=== PATIENT | female | born 1975 | race Caucasian/White ===

== ENCOUNTER 2025-03-23 08:38 | Outpatient (REF) | payer OTHER, SELFPAY ==
[2025-03-23 13:29] LABS: Appearance Urine Clear; Glucose Urine UA Negative (Negative); PH 6.0 (5.0-9.0); Specific Gravity - Urine 1.015 (1.005-1.025); UMIC TRIGGER UACC YES
[2025-03-23 13:36] LABS: UACC Culture Trigger YES
[2025-03-23 13:56] LABS: Hemoglobin A1C 123.7948 umol/L
[2025-03-23 14:13] LABS: Alanine Aminotransferase 24 U/L (0-31); Albumin Level 4.2 g/dL (3.5-5.0); Alkaline Phosphatase 73 U/L (39-117); Anion Gap 8 (12-20); Aspartate Amino Transferase 24 U/L (5-31); Blood Urea Nitrogen 14 mg/dL (9-16); Calcium 8.8 mg/dL (8.4-10.2); Carbon Dioxide 27 mmol/L (22-29); Chloride 106 mmol/L (96-108); Cholesterol 149 mg/dL (<200); Estimated Glomerular Filt Rate > 60; HDL Cholesterol 52 mg/dL (>40); Magnesium 2.0 mg/dL (1.6-2.6); Potassium 4.2 mmol/L (3.3-5.1); Sodium 137 mmol/L (135-145); Total Protein 7.4 g/dL (6.5-8.0); Triglycerides 65 mg/dL (<150)
[2025-03-23 14:16] LABS: HBS Num1 0.00 mIU/mL (0-7.99); HBsAGNum1 0.47 S/CO (0.00-0.99); HIV Num 1 0.05 S/CO (0.00-0.99); Hepatitis B Surface Antigen Negative (Negative); ~HepC Num1 0.15 S/CO (0.00-0.79); ~Hepatitis B Surface Antibody NONREACTIVE (Nonreactive); ~Hepatitis C Antibody Nonreactive (Nonreactive)
[2025-03-23 14:47] LABS: Folate 10.1 ng/mL (> or = 4.0); Vitamin B12 240 pg/mL (200-900)
[2025-03-29 19:28] LABS: VITAMIN D (1,25 OH) D3 27 pg/mL; Vit D (1,25-Dihydroxy) Total 27 pg/mL (18-72); Vitamin D (1,25 OH) D2 <8 pg/mL
== END 2025-03-23 08:39 | disposition home or self-care (01) ==
LOC: HO.HKASLDS 08:38
PROVIDERS: PCP Student in an Organized Health Care Education/Training Program; Visit Provider Student in an Organized Health Care Education/Training Program
DX: Z13.9 Encounter for screening, unspecified (principal); Z76.89 Persons encountering health services in other specified circumstances; Z13.31 Encounter for screening for depression; Z13.1 Encounter for screening for diabetes mellitus; Z13.220 Encounter for screening for lipoid disorders; J38.3 Other diseases of vocal cords; D17.9 Benign lipomatous neoplasm, unspecified; E66.01 Morbid (severe) obesity due to excess calories; R49.0 Dysphonia; R06.2 Wheezing; F41.9 Anxiety disorder, unspecified; F32.A Depression, unspecified; F43.10 Post-traumatic stress disorder, unspecified; F12.91 Cannabis use, unspecified, in remission; Z87.891 Personal history of nicotine dependence; Z68.43 Body mass index [BMI] 50.0-59.9, adult
CPT/HCPCS: 36415; 80053; 80061; 81001; 82607; 82652; 82746; 83036; 83735; 84443; 86706; 86803; 87086; 87340; 87389; 96127; 99202

== ENCOUNTER 2025-03-23 08:38 | Outpatient (AMB) | payer OTHER, SELFPAY ==
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
[2025-03-23 08:49] VITALS: BP 142/90; PULSE 76; O2SAT 97; BMI 57.2
== END 2025-03-23 09:40 | disposition home or self-care (01) ==
PROVIDERS: PCP Student in an Organized Health Care Education/Training Program; Visit Provider Student in an Organized Health Care Education/Training Program
DX: J38.3 Other diseases of vocal cords (principal); D17.9 Benign lipomatous neoplasm, unspecified; E66.01 Morbid (severe) obesity due to excess calories; R49.0 Dysphonia; R06.2 Wheezing; F41.9 Anxiety disorder, unspecified; F32.A Depression, unspecified; F43.10 Post-traumatic stress disorder, unspecified; Z13.31 Encounter for screening for depression; Z13.220 Encounter for screening for lipoid disorders; Z87.891 Personal history of nicotine dependence; F12.91 Cannabis use, unspecified, in remission

== ENCOUNTER 2025-04-06 14:09 | Outpatient (AMB) | payer OTHER, SELFPAY ==
--- OUTSIDE RECORDS SUMMARY | 2020-08-12 07:00 | XMS_ITS | Continuity of Care Document ---
Author Organization [facility] Address [address] [place] [id number] Phone Care Team Providers Care Insurance Coordinator Name Role Phone Elsi Sierra PA-C Unavailable Unavailable Procedures Procedure Date Left Without Being Seen Advance Directives Directive Yes / No Effective Date File Name No Information Encounters Encounter Description Practice Location Reason(s) For Visit Diagnoses Date Provider Providers Copied on Encounter [facility], [address] [place] [address], [id number], tel:[phone] [place] [address] No Information [facility] Calzada. [address] [place] [address], [id number], [place]. tel:[phone] Referring Provider: Elsi Sierra, [address] [place] [address], [facility]. tel:[phone] Family History Family Member Type Diagnosis Age At Onset No Information Payers Payer name Insurance type Covered constitution party ID Authoriza tion(s) No Information Social History Type Description Quantity Date Captured Comments Alcohol Use Details Unknown Caffeine Use Details Unknown Tobacco Use Status No Information Smoking Status No Information Sex Female Sexual Orientation Choose not to disclose Gender Identity Choose not to disclose Chief Complaint And Reason For Visit No Information Reason For Referral Reason For Referral No Information Plan Of Treatment Date Type Action Status Goal Pap/HPV testing. Due on due History Of Present Illness Encounter Date Complaint History Of Prese nt Illness No Information Functional Status Date Functional Assessmen t No Information Instructions Date Instruction Additional Infor mation No Information Assessments Type Assessment Date No Information Patient Care Teams Name Effective Dates (start - stop) Status Members No Information
--- NOTE | 2025-04-06 14:16 | A.OFFPC_ITS ---
Vital Signs 04/06/25 14:17 Height 5 ft 5.94 in Weight 346 lb 2 oz BMI 56.0 BMI Reason not done Patient refused/unable Respiration 16 Pulse 89 Pulse Source Pulse Oximeter Temp 99.2 F Temp Source Oral Pulse Oximetry (%) 97 Oxygen Delivery Method Room Air Intake Visit Reasons: pap smear Intake Note: Patient is a new patient here to establish care for Vocal cord disorder, GERD. Pt state she does not have asthma. Transferring care from [place]. Medical records have been requested today. Ultrasound Manager Required: No Accompanied by: Self / Same As Patient Allergies Penicillins Allergy (Verified 04/06/25 14:16) Unknown Tobacco use date assessed: 03/23/25 Dental Screening Dental Screen Date: 03/23/25 Did you have a dental visit in the last 12 months?: No Did you have a dental problem in the last 6 months where you did not have access to dental care?: No Was dental information given to patient?: Yes HPI HPI Comments History of Present Illness Details History of Present Illness The patient is a 49-year-old female presenting with mental health concerns including depression, anxiety, and sleep disturbances. Patient also came in to perform a Pap smear and for her results from initial encounter was not able to perform the Pap or provide results due to the EMR being down I could not access labs place orders etcetera she will return for lab results and Pap smear -vocal cord dysfunction Patient did not take the famotidine she stopped all medication and is just on allergy medication which she verbalizes has helped very much. Depression: - The patient reports experiencing depre ssion, which is part of a broader set of mental health issues. Panic attacks: - The patient experiences panic attacks as part of her anxiety disorder. Anxiety: - Anxiety is a significant concern for t davis patient, contributing to her overall mental health challenges. Obsessive-compulsive disorder (OCD): - The patient has a history of obsessive -compulsive disorder, which is part of her mental health profile. Post-traumatic stress disorder (PTSD): - The patient reports PTSD symptoms foll owing traumatic events in 1997 and 2001, including finding her baby and mother . Separation anxiety: - The patient experiences separation anx iety, contributing to her mental health issues. Agoraphobia: - The patient reports agoraphobia, which affects her daily functioning. Sleep disturbances: - The patient experiences sleep disturba nces, including waking up multiple times during the night, which she attributes to menopause. Review of Systems - Psychiatric: Reports depression, panic attacks, anxiety, OCD, PTSD, separation anxiety, agoraphobia. - Sleep: Reports frequent awakenings dur ing the night, attributed to menopause. 10-point ROS reviewed and negative excep t as noted in HPI Past Medical History - Depression - Panic attacks - Anxiety - Obsessive-compulsive disorder (OCD) - Post-traumatic stress disorder (PTSD) - Separation anxiety - Agoraphobia Health Maintenance - Discussed referral to therapy for ment al health support, including options for virtual sessions. - Planned Pap smear for cervical cancer screening. Physical Exam General: Well-appearing, in no acute distress. Vital signs: Within normal limits. HEENT: Normocephalic, atraumatic. PERRLA, EOMI. Conjunctiva clear, sclera anicteric. Oropharynx clear, mucous membranes moist. TMs intact bilaterally. Neck: Supple, no lymphadenopathy, no thyromegaly, no JVD or carotid bruits. Cardiovascular: RRR, normal S1/S2, no murmurs, rubs, or gallops. Peripheral pulses 2+ and symmetric. No edema. Respiratory: Lungs clear to auscultation bilaterally, no wheezes, rales, or rhonchi. Normal effort. Abdomen: Soft, non-tender, non-distended. Normoactive bowel sounds. No hepatosplenomegaly, no masses. MSK: Full range of motion, no joint swelling or deformity. Normal gait. Skin: Warm, dry, intact. No rashes, lesions, or pallor. Neuro: Alert and oriented x3. Cranial nerves II-XII intact. Strength 5/5 throughout. Sensation intact. Reflexes 2+ symmetric. Normal coordination and gait. Psych: Appropriate mood and affect. Normal judgment and insight. Patient reports depression, panic attacks, anxiety, OCD, posttraumatic stress syndrome, separation anxiety, and agoraphobia. Plan 1. Depression - Referral to therapy for mental health support was discussed. 2. Panic Attacks - Referral to therapy for mental health support was discussed. 3. Anxiety - Referral to therapy for mental health support was discussed. 4. Obsessive-Compulsive Disorder (Ocd) - Referral to therapy for mental health support was discussed. 5. Post-Traumatic Stress Disorder (Ptsd) - Referral to therapy for mental health support was discussed. 6. Separation Anxiety - Referral to therapy for mental health support was discussed. 7. Agoraphobia - Referral to therapy for mental health support was discussed. 8. Sleep Disturbances - Discussed the use of melatonin and oth er sleep aids to manage sleep disturbances. Discussion Notes During the visit, we discussed the patient's mental health concerns, including depression, anxiety, and sleep disturbances. I recommended a referral to therapy, which can be conducted virtually. We also discussed the use of melatonin for sleep issues. Patient was informed and verbally consented to the use of an ambient scribe for clinic note documentation during this visit. Patient Instructions - Follow up with the therapist as discus sed for mental health support. - Consider using melatonin or other fer mmended sleep aids to improve sleep quality. - Schedule a Pap smear for cervical can er screening as planned. Total time spent caring for the patient today was 30 minutes. This includes time spent before the visit reviewing the chart, time spent documenting, and time spent reviewing laboratory results, medications, performing a medically necessary evaluation, counseling on diagnoses, care coordination, ordering appropriate tests, ordering appropriate medications. [facility] [place] Medical History Lipoma Disorder of vocal cord Surgical History S/P tubal ligation Social History Housing: House Patient Tobacco Use Status: Never used Tobacco e-Cigarette/Vaping Use: Never Used Substance Use Type: Marijuana service: No Current occupational status: disabled Cognitive needs: No Hearing needs: No Vision needs: No Questionnaire PHQ-9 Over the last 2 weeks, how often have you been bothered by any of the following problems? 1. Little interest or pleasure in doing things: not at all 2. Feeling down, depressed, or hopeless: several days 3. Trouble falling or staying asleep, or sleeping too much: nearly every day 4. Feeling tired or having little energy: several days 5. Poor appetite or overeating: not at all 6. Feeling bad about yourself - or that you are a failure or have let yourself or your family down: several days 7. Trouble concentrating on things, such as reading the newspaper or watching television: several days 8. Moving or speaking so slowly that other people could have noticed. Or the opposite - being so fidgety or restless that you have been moving around a lot more than usual: nearly every day 9. Thoughts that you would be better off or of hurting yourself in some way: not at all Total score: 10 Depression Screening Interpretation: Positive Depression Screening Done: Yes 63090 - PHQ-9 Billing: Yes Source: Developed by Drs. Corey Oropeza, Karen Enriquez, Parth Fagan and colleagues, with an educational bruce from [employer]. Thrive Questionnaire Date Thrive assessed: 03/16/25 I am a: Patient What is your living situation today?: I have a steady place to live Within the past 12 months, did the food you bought not last and you didn't have the money to get more?: Sometimes True Within the past 12 months, did you worry whether your food would run out before you got money to buy more?: Sometimes True Do you have trouble paying for medicines?: Yes Do you have trouble getting transportation to medical appointments?: Yes Do you have trouble paying your heating and electricity bill?: Yes Do you have trouble taking care of your child, family member or friend?: I choose not to answer this question Do you have trouble with day-to-day activities such as bathing, preparing meals, shopping, managing finances, etc.?: Yes Are you currently unemployed and looking for a job?: I choose not to answer this question Are you interested in more education?: No THRIVE Score: 4 AUDIT C Alcohol Use Questionnaire (AUDIT-C) 1. How often do you have a drink containing alcohol?: Monthly or less 2. How many drinks containing alcohol do you have on a typical day when you are drinking?: 1 or 2 3. How often do you have six or more drinks on one occasion?: Never Total Score: 1 RENETTA-7 AMB Questionnaire RENETTA-7 Date RENETTA - 7 assessed: 03/23/25 Feeling nervous, anxious, or on edge: 3 = Nearly every day Not being able to stop or control worryin = Nearly every day Worrying too much about different things: 3 = Nearly every day Trouble relaxin = Nearly every day Being so restless that it is hard to sit still: 3 = Nearly every day Becoming easily annoyed or irritable: 0 = Not at all Feeling afraid as if something awful might happen: 3 = Nearly every day Total RENETTA-7 score (0-4 normal; 5-9 mild; 10-14 moderate; 15-21 severe): 18 Source: Developed by Drs. Corey Oropeza, Karen Enriquez, Parth Fagan and colleagues, with an educational bruce from [employer]. RENETTA-7 Assessment Billing RENETTA-7 Assessment Tool: RENETTA-7 Assessment 07180 Physical exam (Primary Care) Vital Signs: Last Vital Signs Temp 99.2 F 04/06/25 14:17 Pulse 89 04/06/25 14:17 Resp 16 04/06/25 14:17 Pulse Ox 97 04/06/25 14:17 Oxygen Delivery Method Room Air 04/06/25 14:17 BMI result Body Mass Index 56.0 Tobacco/Smoking Status: Tobacco use Status Tobacco use date assessed 03/23/25 04/06/25 14:17 Patient Tobacco Use Status Never used Tobacco 04/06/25 14:17 e-Cigarette/Vaping Use Never Used 04/06/25 14:17 PHQ-9: PHQ-9 Score PHQ-9: Total score 10 04/06/25 14:20 Depression Screening Interpretation: Positive Thrive Assessment: Date of Thrive Assessment Date Thrive assessed 03/16/25 04/06/25 14:17 Coding Level of Care Code Est Pt Level 4 (86707) Diagnoses Disorder of vocal cord J38.3 Anxiety and depression F41.9; F32.A Panic attacks F41.0 OCD (obsessive compulsive disorder) F42.9 Posttraumatic stress disorder F43.10 Separation anxiety F93.0 Agoraphobia F40.00 Sleep disturbances G47.9 Additional Codes RENETTA-7 Assessment Billing - RENETTA-7 Assessment Tool: RENETTA-7 Assessment 82539 ([id number]) PHQ-9 - 97748 - PHQ-9 Billing: Yes ([id number]) Assessment & Plan Assessment & Plan (1) Disorder of vocal cord: Code(s): J38.3 - Other diseases of vocal cords Category: Medical (2) Anxiety and depression: Code(s): F41.9 - Anxiety disorder, unspecified; F32.A - Depression, unspecified (3) Panic attacks: Code(s): F41.0 - Panic disorder [episodic paroxysmal anxiety] (4) OCD (obsessive compulsive disorder): Code(s): F42.9 - Obsessive-compulsive disorder, unspecified (5) Posttraumatic stress disorder: Code(s): F43.10 - Post-traumatic stress disorder, unspecified (6) Separation anxiety: Code(s): F93.0 - Separation anxiety disorder of childhood (7) Agoraphobia: Code(s): F40.00 - Agoraphobia, unspecified (8) Sleep disturbances: Code(s): G47.9 - Sleep disorder, unspecified Plan Orders: Referrals Nurse Navigator Referral F32.A - Depression, unspecified, F40.00 - Agoraphobia, unspecified, F41.0 - Panic disorder [episodic paroxysmal anxiety], F41.9 - Anxiety disorder, unspecified, F42.9 - Obsessive-compulsive disorder, unspecified, F43.10 - Post-traumatic stress disorder, unspecified, F93.0 - Separation anxiety disorder of childhood, G47.9 - Sleep disorder, unspecified Medications: New melatonin 10 mg PO BEDTIME PRN 30 tabs 0RF sleep
[2025-04-06 14:17] VITALS: PULSE 89; RESP 16; TEMP 37.3; O2SAT 97; BMI 56.0
== END 2025-04-06 15:03 | disposition home or self-care (01) ==
LOC: HO.HMCFMS 14:10
PROVIDERS: PCP Student in an Organized Health Care Education/Training Program; Visit Provider Student in an Organized Health Care Education/Training Program
DX: J38.3 Other diseases of vocal cords (principal); F41.9 Anxiety disorder, unspecified; F32.A Depression, unspecified; F41.0 Panic disorder [episodic paroxysmal anxiety]; F42.9 Obsessive-compulsive disorder, unspecified; F43.10 Post-traumatic stress disorder, unspecified; F93.0 Separation anxiety disorder of childhood; F40.00 Agoraphobia, unspecified; G47.9 Sleep disorder, unspecified

== ENCOUNTER → 2025-04-06 14:09 | Outpatient (BNVA) | payer OTHER, SELFPAY | PROVIDERS: PCP Student in an Organized Health Care Education/Training Program; Visit Provider Student in an Organized Health Care Education/Training Program | DX: J38.3 Other diseases of vocal cords (principal); F41.9 Anxiety disorder, unspecified; F32.A Depression, unspecified; F41.0 Panic disorder [episodic paroxysmal anxiety]; F42.9 Obsessive-compulsive disorder, unspecified; F43.10 Post-traumatic stress disorder, unspecified; F93.0 Separation anxiety disorder of childhood; F40.00 Agoraphobia, unspecified; G47.9 Sleep disorder, unspecified | CPT/HCPCS: 96127; 99212 ==